=== PATIENT | female | born 1945 | race Caucasian/White ===

== ENCOUNTER 2016-11-11 23:45 | Emergency (ER) | payer OTHER ==
[~2016-11-11 23:45] MED LIST: AMIT25 PO; ASAB PO; AT25 PO; CALTRA600D PO; COLAGEN PO; DEMA20 PO; DURA75 TOP; ERY-TAB250 MG PO; GLUCOPHXR PO; GLUCPH PO; INDE80 PO; L20 PO; L40 PO; LEVOTHYROXIN100 MCG PO; LEVOTHYROXIN112 MCG PO; LEVOTHYROXIN125 MCG PO; LEVOTHYROXIN137 MCG PO; LOP25 PO; METHOC500B PO; MIRAPEX250 PO; NORCO1 TA1 PO; NORCO1 TA2 PO; PCET PO; PERCOCET1 TA4 PO; POT GLUCONAT550 M1 OR; PROTONIX PO; RELISTOR12 MG/0.6 SC; SALAGEN5 MG PO; SINGULAIR1 PO; SPIRO25 PO; SPIRO50 PO; SUCR PO; SURBEX/C1 TAB PO; TOPAMAX100 PO; VESICARE10 MG PO; VITAMIN D31000 UNIT PO; X25 PO; ZANTAC150 MG PO; ZESTORETIC1 TAB PO; ZOFRAN8 PO; [UNRECOGNIZED DRUG - OTHER] PO
[2016-11-12 01:34] LABS: BASOPHILS 0.1 %; BASOPHILS ABSOLUTE 0.01 10/3/uL (0.0-0.16); EOSINOPHILS 0.9 %; EOSINOPHILS ABSOLUTE 0.06 10/3/uL (0.0-0.53); ER CBC TAT 0 Hrs 05 MinsNP; HEMATOCRIT 40.1 % (36.0-48.0); HEMOGLOBIN 13.2 g/dL (12.0-16.0); IMMATURE GRANULOCYTES 0.1 %; IMMATURE GRANULOCYTES ABSOLUTE 0.01 10/3/uL (0.0-0.11); LYMPHOCYTES 27.5 %; LYMPHOCYTES ABSOLUTE 1.88 10/3/uL (0.67-4.30); MANUAL DIFF NO %; MEAN CORPUS HGB CONC 32.9 g/dL (32.0-36.0); MEAN CORPUSCULAR HEMOGLOB 31.9 pg (26.0-34.0); MEAN CORPUSCULAR VOLUME 96.9 fL (80-100); MEAN PLATELET VOLUME 9.5 fL (9.2-13.0); MONOCYTES 8.1 %; MONOCYTES ABSOLUTE 0.55 10/3/uL (0.21-1.20); NEUTROPHILS 63.3 %; NEUTROPHILS ABSOLUTE 4.32 10/3/uL (2.02-8.40); PLATELET COUNT 185 10/3/uL (150-400); RED CELL COUNT 4.14 10/6/uL (4.0-5.6); WHITE BLOOD CELLS 6.8 10/3/uL (4.5-10.5)
[2016-11-12 01:47] LABS: A/G RATIO 1.1 (0.7-1.9); ALBUMIN 3.8 G/DL (3.5-5.0); ALKALINE PHOSPHATASE 59 U/L (45-117); BUN (BLOOD UREA NITROGEN) 14 MG/DL (6-23); CALCIUM, SERUM 9.3 MG/DL (8.5-10.4); CHLORIDE, SERUM 102 MMOL/L (96-112); CO2 (CARBON DIOXIDE) 29 MMOL/L (24-34); GLOBULIN 3.5 G/DL (2.5-4.1); POTASSIUM, SERUM 4.4 MMOL/L (3.5-5.3); SGOT(AST) 9 U/L (5-40); SGPT(ALT) 29 U/L (5-65); SODIUM, SERUM 139 MMOL/L (135-148); TOTAL BILIRUBIN 0.3 MG/DL (0-1.2); TOTAL PROTEIN 7.3 G/DL (6.0-8.5)
[2016-11-12 01:48] LABS: ASCORBIC ACID (UR NOT ORDER) NEG (NEG); BILIRUBIN, URINE NEGATIVE (NEG); ER URINALYSIS TAT 0 Hrs 00 Mins; KETONE, URINE NEGATIVE (NEG); LEUKOCYTE ESTERASE(NOT OR LARGE (NEG); NITRITE (URINE) POS (NEG); WBC (NOT ORDERED) (RFLEX) > 182 (0-5)
[2016-11-12 01:48] LABS: CREATININE 1.26 MG/DL (0.55-1.02); GFR AFRICAN AMERICAN 50 ML/MIN (>=60); GFR NON AFRICAN AMERICAN 43 ML/MIN (>=60); GLUCOSE, SERUM 145 MG/DL (60-99)
[2016-12-02] MEDS ORDERED: BUSPAR5 PO (15:25)
[2017-02-03] MEDS ORDERED: D 5000 PO (20:51)
[2017-02-03] MEDS ORDERED: SYN1 PO (20:51)
[2017-02-03] MEDS ORDERED: GLUCPH PO (20:52)
[2017-02-03] MEDS ORDERED: LOP25 PO (20:52)
[2017-02-03] MEDS ORDERED: MYRBETRIQ50 MG PO (20:52)
[2017-02-03] MEDS ORDERED: DEMA20 PO (20:53)
[2017-02-03] MEDS ORDERED: ZOFRAN8 PO (20:53)
[2017-02-03] MEDS ORDERED: OSPHENA60 MG PO (20:54)
[2017-02-03] MEDS ORDERED: MIRAPEX5 PO (20:54)
[2017-02-03] MEDS ORDERED: VITAMIN B PO (20:54)
[2017-02-03] MEDS ORDERED: PROTONIX PO (20:54)
[2017-02-03] MEDS ORDERED: PERCOCET 10/3251 TAB PO (20:54)
[2017-02-03] MEDS ORDERED: LEG CRAMPS PO (20:55)
[2017-02-03] MEDS ORDERED: LEVSINTAB PO (20:55)
[2017-02-03] MEDS ORDERED: SPIR100 PO (20:55)
[2017-02-03] MEDS ORDERED: TEARS PURE OPH (20:56)
[2017-02-03] MEDS ORDERED: CEFT2 PO (20:56)
[2017-03-26] MEDS ORDERED: ENDOCET1 TA3 PO ×2 (23:51→23:56)
[2017-03-26] MEDS ORDERED: COUMADIN3 MG PO (23:51)
[2017-03-26] MEDS ORDERED: GLUCPH PO (23:52)
[2017-03-26] MEDS ORDERED: DEMA20 PO ×2 (23:52→23:57)
[2017-03-26] MEDS ORDERED: CORDARONE PO (23:53)
[2017-03-26] MEDS ORDERED: REFRESH OPH (23:54)
[2017-03-26] MEDS ORDERED: SYN1 PO (23:54)
[2017-03-26] MEDS ORDERED: LIPITOR40 PO (23:54)
[2017-03-26] MEDS ORDERED: LOP25 PO (23:54)
[2017-03-26] MEDS ORDERED: MYRBETRIQ50 MG PO (23:55)
[2017-03-26] MEDS ORDERED: ZOFRAN8 PO (23:55)
[2017-03-26] MEDS ORDERED: MIRAPEX5 PO (23:56)
[2017-03-26] MEDS ORDERED: PROTONIX PO (23:56)
[2017-03-26] MEDS ORDERED: SPIR100 PO (23:57)
[2017-03-26] MEDS ORDERED: PSEUDOEPHEDR60 MG PO (23:58)
[2017-03-26] MEDS ORDERED: NEO-OINT15 TOP (23:59)
== END 2016-11-12 04:54 | disposition home or self-care (01) ==
LOC: ER 23:45
PROVIDERS: Hospitalist
DX: K20.9 Esophagitis, unspecified (principal); N39.0 Urinary tract infection, site not specified; K21.9 Gastro-esophageal reflux disease without esophagitis; Z88.8 Allergy status to other drugs, medicaments and biological substances; Z79.899 Other long term (current) drug therapy
CPT/HCPCS: 74176; 80053; 81001; 83690; 85025; 87077; 87086; 87186; 96374; 96375; 99284; A9270-GY; J2405

== ENCOUNTER 2017-02-03 20:57 | Inpatient (IN) | payer OTHER ==
--- NOTE | ~2017-02-03 | CN ---
Consultation Report [facility] [address] [facility] [place]. [address] NAME: KACI BONDS : 49 STATUS : ADM IN [facility]#: [id number] AGE: 71 ADM/REG DATE : 02/03/17 MR#: [id number] REPORT SERV DATE: 02/06/17 DICTATED BY: DATE: REPORT STATUS : Draft TRANSCRIBED BY: MODL DATE: 02/06/17 CARDIOLOGY CONSULTATION DATE OF CONSULTATION: 02/06/2017 CHIEF COMPLAINT/REASON FOR CONSULTATION: Postoperative atrial fibrillation. HISTORY OF PRESENT ILLNESS: Mrs. Kaci Bonds is a very pleasant 71-year-old female, who presented on 02/03/2017 to the emergency department with chest pain. Initially, a type A dissection was suspected via CT examination. Sternotomy performed. It was found that the ascending aorta was normal after the aorta and the root were explored, and she was recovering from her surgery when she was found to have a short episode of paroxysmal atrial fibrillation. She was asymptomatic during the episode and subsequently converted to normal sinus rhythm by 0716 hours this morning. PAST MEDICAL HISTORY: 1. Hypertension. 2. Diabetes mellitus. 3. Spondylolisthesis. 4. Bronchitis. 5. Fibromyalgia. 6. Chronic back pain, status post nerve stimulator. SOCIAL HISTORY: The patient is . She has several children and grandchildren. She does not smoke, drink, or use extracurricular drugs. FAMILY HISTORY: Significant for cerebrovascular disease, but otherwise negative. REVIEW OF SYSTEMS: Performed and is negative, except for dictated in HPI. PHYSICAL EXAMINATION: VITAL SIGNS: The patient is afebrile, pulse between 93 and 133 beats per minute today, blood pressure 109 to 141 over 56 to 60, respirations 16, oxygen saturations 96% on 2 L nasal cannula. GENERAL: Mrs. Bonds is drowsy appearing, but in no distress. NECK: No jugular venous distention. No carotid bruits. HEART: Regular rate and rhythm. Soft S1 and S2. I could not appreciate murmurs, rubs, or gallops. LUNGS: Clear to auscultation in all hoang. ABDOMEN: Obese. Mildly tender to palpation. I could not appreciate any renal bruits. Bowel sounds are mildly hypoactive. EXTREMITIES: Warm and well perfused. There is +1 pitting edema bilaterally. NEUROLOGIC: The patient is drowsy, but she answers questions appropriately and follows Consultation Report [facility] [address] [address] NAME: KACI BONDS : [birth year] STATUS : ADM IN [facility]#: [id number] AGE: 71 ADM/REG DATE : 02/03/17 MR#: [id number] REPORT SERV DATE: 02/06/17 DICTATED BY: DATE: REPORT STATUS : Draft TRANSCRIBED BY: MODL DATE: 02/06/17 commands appropriately. I could not appreciate focal neurologic deficit. MUSCULOSKELETAL: No clubbing or cyanosis of the digits. DATA: Hemoglobin 9.2, hematocrit 28, platelet count is 156. Sodium 138, potassium 4.6, BUN 22, creatinine 0.59, glucose is 166. TSH is mildly decreased at 0.128, free T4 mildly elevated at 1.47. An EKG performed shortly after an episode of atrial fibrillation documented a normal sinus rhythm at 97 beats per minute. PVC was noted. There is poor R- wave progression. IMPRESSION REPORT AND PLAN: 1. Postoperative atrial fibrillation, now resolved. CHADS-VASc score 4. 2. Hypertension. 3. Diabetes mellitus. 4. Anemia. 5. Mild volume overload. RECOMMENDATIONS: 1. I discussed the risks and benefits of anticoagulation with the patient and her at the bedside and would recommend anticoagulation to reduce her stroke risk. In light of her postoperative state, I would recommend using warfarin for goal INR of 2 to 3. 2. She will continue her metoprolol tartrate unchanged at this time. 3. We will perform amiodarone loading and likely wean off amiodarone in the near future. 4. Continue normal postoperative care. It has been my pleasure to participate in the care of this patient. CANDICE/WHITNEY Ashley Rivas M.D. / [id number] CC: MD Criss Crowley M.D.
--- NOTE | ~2017-02-03 | DS ---
Discharge Summary [facility] [address] [place]. [address] NAME: KACI SERRANO : 49 STATUS : DIS IN PAT#: [id number] AGE: 71 ADM/REG DATE : 02/03/17 MR#: [id number] REPORT SERV DATE: 02/17/17 DICTATED BY: MARITZA FELIPE DATE: 02/16/17 REPORT STATUS : Draft TRANSCRIBED BY: WHITNEY DATE: 02/16/17 Data Collection from hospitalization DISCHARGE DIAGNOSIS(ES): 1. Status post aortic exploration. 2. Paroxysmal atrial fibrillation. 3. Hypertension. 4. Diabetes mellitus. CONSULTATIONS: Dr. Ashley Rivas. PROCEDURES PERFORMED: 1. Median sternotomy; innominate artery cannulation; extracorporeal circulation; ascending aortic exploration; transesophageal echo; endoscopic vein harvest of the right thigh; Prevena dressing placement, 02/04/2017. 2. Venous ultrasound of the upper extremity on the left side, 02/10/2017. 3. Echocardiogram, 02/07/2017. MEDICATIONS: Aspirin 81 mg daily, Lipitor 40 mg at bedtime, vitamin D 5000 units twice daily, Synthroid 100 mcg before breakfast, Lopressor 25 mg twice daily, Myrbetriq 50 mg daily, Mirapex 0.5 mg at bedtime, Zofran 8 mg every 8 hours as needed, Percocet 10/325 one four times daily, Protonix 40 mg twice daily, vitamin D one daily, Aldactone 100 mg with breakfast and supper, [id number] medication two tablets daily for leg cramps, Levsin 0.125 mg twice daily as needed, and artificial tears one drop each eye twice daily as needed. CONDITION AT DISCHARGE: Upon discharge, she did appear to be doing well and had no complaints. DISPOSITION: She was discharged home to continue a 1500 calorie ADA cardiac diet with activity as discussed. She was to follow up with myself on 03/04/2017. Follow up with Dr. Criss Nicholson on 02/18/2017. Follow up with Dr. Ashley Rivas on 03/10/2017. Follow up for an INR check at [facility] on 02/12/2017. HOSPITAL COURSE: This 71-year-old female had presented to the emergency room at [facility] with complaints of chest pain and shortness of breath. Her cardiac workup included EKG and cardiac enzymes which were normal. Labs were unremarkable and vital signs were stable. 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 I was notified of the patient's dissection and the patient was transferred to [facility] to undergo emergent surgery and further evaluation. Upon admission to the hospital, she had been placed on preop cardiac surgery orders. Following the day of admission, she had been taken to the operating room where she did undergo the above procedure. She tolerated this well and was transferred to the recovery room. On postop day #1, she had no new issues noted. She did state that she was feeling a little better. She did have the anticipated sternal pain noted. Her vital signs were stable. She was however noted to have a temperature at 100.8, and her vital signs were stable. Her blood pressure was noted to have been improved. Discharge Summary [place] [id number] [facility] [place]. [address] NAME: KACI SERRANO : 49 STATUS : DIS IN PAT#: [id number] AGE: 71 ADM/REG DATE : 02/03/17 MR#: [id number] REPORT SERV DATE: 02/17/17 DICTATED BY: MARITZA FELIPE DATE: 02/16/17 REPORT STATUS : Draft TRANSCRIBED BY: WHITNEY DATE: 02/16/17 On postop day #2, she did continue to do well and was noted to have had a short episode of atrial fibrillation with RVR with a 3 second pause and then sinus rhythm thereafter. She had had abnormal rhythm all morning with ST ( ) pauses and what appeared to be atrial fibrillation or atrial flutter. She was asymptomatic to this. Her only complaint was soreness and weakness as well as some palpitations. Secondary to this, she had been evaluated by Dr. Ashley Rivas of Cardiology for postoperative atrial fibrillation. She discussed the risks and benefits of anticoagulation with the patient and her at the bedside, and she had recommended anticoagulation to reduce her stroke risk, and in light of her postoperative stay, she had recommended using warfarin for goal INR of 2-3. She was to continue her metoprolol tartrate at the current dose, and she was to undergo amiodarone loading and likely wean off amiodarone in the near future. She was to continue her normal postoperative care. On 02/07/2017, she did appear to be doing well and had no major issues noted. She had converted back to sinus rhythm, and she did appear to be much more awake and not as groggy. She was however noted to be very sensitive to touch and did have complaints of pain and reflux. She had refused milk of magnesia the previous day, however, had not had a bowel movement since before surgery. She was afebrile, and her vital signs were stable. We tried to give her milk of magnesia. However, she had thrown this up and had not been eating or drinking much and did state that she had a history of multiple esophageal dilations and her last one was three to four months ago. She did have complaints of heartburn with an inability to tolerate liquids. She did undergo the above echocardiogram. She did appear to be doing well otherwise except for her decreased appetite. She was in sinus rhythm on telemetry. On 02/08/2017, she did remain in stable condition and had no new complaints noted. She was continued on supportive care. She did remain in stable condition and had continued to do well. She was noted to have some upper extremity swelling with the left being greater than the right on 02/10/2017, and she did undergo a venous ultrasound. As she continued to do well, she was then discharged with the above instructions. Information collected by: Rafiq Peraza. I submit the above information as my discharge summary. JACE/WHITNEY Maritza Felipe MD / [id number] CC: MD Criss Crowley M.D. Lisa Gail Carkner, M.D.
--- NOTE | ~2017-02-03 | OP ---
Record Of Operation [facility] [address] [place]. [address] NAME: KACI BONDS : 49 STATUS : ADM IN [facility]#: [id number] AGE: 71 ADM/REG DATE : 02/03/17 MR#: [id number] REPORT SERV DATE: 02/04/17 DICTATED BY: MARITZA FELIPE DATE: 02/04/17 REPORT STATUS : Draft TRANSCRIBED BY: MODL DATE: 02/04/17 DATE OF PROCEDURE: 02/04/2017 SURGEON: Maritza Felipe MD CASE CONSULTANT: Christiano Felipe. ANESTHESIOLOGIST: Brian Damian M.D. PREOPERATIVE DIAGNOSES: 1. Type A aortic dissection. 2. Tachycardia. 3. Diabetes mellitus. 4. Gastroesophageal reflux disease. POSTOPERATIVE DIAGNOSES: Normal ascending aorta, tachycardia, diabetes mellitus, GERD. OPERATION AND PROCEDURE PERFORMED: 1. Median sternotomy. 2. Innominate artery cannulation. 3. Extracorporeal circulation. 4. Ascending aortic exploration. 5. Transesophageal echo. 6. Endoscopic vein harvest of the right thigh. 7. Prevena dressing placement. TUBES AND DRAINS: A 32 straight chest tube under the sternum. COMPLICATIONS: None. POSTOPERATIVE CONDITION: Stable to CVICU. DETAILS OF FINDINGS: Transesophageal echo showed trace to mild AI. No . There is a very small flap above the right coronary cusp. The ascending aorta was hard to visualize. INTRAOPERATIVE FINDINGS: Upon opening the pericardium, there was no staining of the ascending aorta. There is no blood in the pericardial. There is no evidence of what would be considered an acute type A dissection. At this point, Dr. Damian was recalled to the room and transesophageal echo was again examined and there was still felt to be a small flap above the right coronary cusp which correlated with the CT scan. After cross clamp and cardioplegia and the opening of the aorta, there was no dissection. There was no ascending aortic root dissection. There was no ascending aortic pathology. There was no real pathology. The aortic valve was trileaflet and normal in appearance. INDICATIONS FOR PROCEDURE: Ms Bonds is a 71-year-old female, who was in her usual state of health until approximately 3 this afternoon of the 02/03/2017, went to the store and was Record Of Operation [facility] [address] [place]. [address] NAME: KACI BONDS : 49 STATUS : ADM IN PAT#: [id number] AGE: 71 ADM/REG DATE : 02/03/17 MR#: [id number] REPORT SERV DATE: 02/04/17 DICTATED BY: MARITZA FELIPE DATE: 02/04/17 REPORT STATUS : Draft TRANSCRIBED BY: WHITNEY DATE: 02/04/17 found to have acute chest pain radiating to her back with shortness of breath and the symptoms were unrelenting. She received a CT scan in the emergency department at [facility], where it was felt to have an acute type A dissection. She was transferred to [facility] and was seen and evaluated in the CVICU and She again was continuing to have the back and chest pain, and shortness of breath. When I saw her, the story was fairly convincing for a type A dissection. The CT scan was reviewed and was consistent with the type A dissection. Risks, benefits, and alternatives were discussed with her and her including, but not limited to bleeding, infection, stroke, , heart attack, need for future operations. All questions were answered. The patient was taken to the operating room. DETAILS OF PROCEDURE: The patient was brought to the operating room, placed supine on the operating room table. After satisfactory induction of general endotracheal anesthesia, she was prepped and draped in the usual sterile fashion. Working simultaneously, endoscopic vein harvest was performed from the right leg, right thigh. Endoscopic vein harvest was performed because it appeared that the aortic cusp was involved and I did not know if I would need to perform a bypass if the ostia of the right coronary was involved. A median sternotomy was performed. Skin and subcutaneous tissues were divided and clavipectoral fascia was divided. The sternum was divided in the midline. A sternal retractor was placed. Thymic tissue was divided in the midline up to the innominate vein. The pericardium was opened in the midline and along the diaphragm and innominate vein was dissected out circumferentially and removed away from the innominate artery. The innominate artery was then dissected circumferentially off where it arises from the arch of the aorta in order to place the bypass cannula. The Satinsky clamp was brought up, and after just a systemic heparinization, the Satinsky clamp was placed around the innominate artery and innominate artery was opened for approximately a centimeter and an 8 mm Gelweave graft was sewn to the innominate artery in an end-to-side fashion using 6-0 Prolene. The graft was de aired. It was felt to be hemostatic and was hooked to the arterial side of the bypass cannula. Now the dual stage venous cannula was placed through a pursestring in the right atrial appendages and hooked to the venous side. Cardiopulmonary bypass was initiated after documentation of an adequate ACT and antegrade root vent cardioplegia tack was placed in the midportion of the ascending aorta. After discussing again with Dr. Damian the transesophageal echo, heart was then arrested with cold antegrade cardioplegia for a total of 1500 mL of prison and an aortotomy was performed. The ascending aorta was completely normal. There was no dissection flap. There was no evidence of any dissection. There was no proximal dissection that could be visualized. There was no reentry point that could be visualized. The ascending aorta en route were completely normal. After thorough examination, the aorta was then closed. The aorta was closed using 4-0 Prolene in a double layered fashion. The root was de-aired and the cross-clamp was removed. The patient returned to normal sinus rhythm and was rewarmed to 37 degrees. She was able to be weaned from cardiopulmonary bypass without incident. Protamine was administered. She was decannulated. All cannulation sites were oversewn with 4-0 Prolene. The innominate artery cannula was stable and felt to be hemostatic. The pericardium was able to be brought through in the couple of places to cover the ascending aorta and the right ventricle. A 32- Slovak chest tube was placed beneath the sternum. The sternum was reapproximated with stainless steel sternal wires. Some of these were double wires. Clavipectoral fascia was reapproximated using running #1 Stratafix. Subcutaneous tissues were closed using running Record Of Operation [place] [id number] [facility] [place]. [address] NAME: KACI BONDS : 49 STATUS : ADM IN PAT#: [id number] AGE: 71 ADM/REG DATE : 02/03/17 MR#: [id number] REPORT SERV DATE: 02/04/17 DICTATED BY: MARITZA FELIPE DATE: 02/04/17 REPORT STATUS : Draft TRANSCRIBED BY: WHITNEY DATE: 02/04/17 #1 Stratafix and the skin was closed with 2-0 Quill. Dry sterile dressings were placed and she was transferred to CVICU in critical, stable condition. Brad/WHITNEY Maritza Felipe MD / [id number] CC: Maritza Felipe MD
--- NOTE | ~2017-02-03 | HP ---
History And Physical [place] [address] [facility] [place]. [address] NAME: KACI SERRANO : 49 STATUS : ADM IN PAT#: [id number] AGE: 71 ADM/REG DATE : 02/03/17 MR#: [id number] REPORT SERV DATE: 02/04/17 DICTATED BY: STEFANI ALEJANDRO DATE: 02/04/17 REPORT STATUS : Draft TRANSCRIBED BY: MODAlanna DATE: 02/04/17 DATE OF ADMISSION: 02/03/2017 REASON FOR ADMISSION: Type A dissection. HISTORY OF PRESENT ILLNESS: This is a 71-year-old female, who presented to the emergency room yesterday afternoon at [facility] with complaints of chest pain and shortness of breath. Her cardiac workup included EKG and cardiac enzymes, which were normal. Labs were unremarkable and vital signs were stable. 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 Dr. Headley was notified of the patient's dissection and the patient was transferred to [facility] to undergo emergent surgery. The patient was taken to the operating room last night, and after a sternotomy, she was not found to have any evidence of dissection. Surgery turned into aortic exploration after cross-clamp with no ascending aortic or root dissection. There was [id number] aortic insufficiency with no aortic stenosis. This morning, she is recovering. She is extubated and has anticipated sternal discomfort, but otherwise, no complaints. She is calm and vital signs are stable other than her blood pressure, which is a little low. She is on low-dose Levophed. Other than her sternal discomfort, she has no complaints at this time. PAST MEDICAL HISTORY: Type 2 diabetes mellitus, tachycardia, lymphedema, bladder repair, hiatal hernia, GERD, gastroparesis, osteoarthritis, and anxiety. PAST SURGICAL HISTORY: Prior nerve stimulator, multiple esophageal dilations, hysterectomy, cholecystectomy, and prior back surgery. FAMILY HISTORY: Reviewed and noncontributory. ALLERGIES: DILANTIN, REGLAN, NSAIDS, MORPHINE, TEGRETOL, CLONAZEPAM, AND PHENERGAN. HOME MEDICATIONS: Artificial tear one drop ophthalmically twice a day as needed, vitamin B complex one tab p.o. daily, vitamin D 5000 units p.o. twice a day, Levsin 0.125 mg p.o. twice a day as needed for esophageal spasm, Synthroid 125 mcg p.o. daily, metformin 500 mg p.o. with breakfast and supper, Lopressor 12.5 mg p.o. twice a day, Myrbetriq 50 mg p.o. daily, Zofran 8 mg p.o. q.8 hours as needed, Osphena 60 mg p.o. daily, Percocet 10/325 one tab four times a day as needed, Protonix 40 mg p.o. twice a day, Mirapex 0.5 mg p.o. at bedtime, Aldactone 100 mg p.o. with breakfast and supper, torsemide one tab p.o. daily, unknown medication for leg cramps and unspecified antibiotic, which she started on 01/31/2017. REVIEW OF SYSTEMS: A 10-point review of systems was obtained and is negative other than HPI. PHYSICAL EXAMINATION: History And Physical [address] [address] NAME: KACI SERRANO : 49 STATUS : ADM IN [facility]#: [id number] AGE: 71 ADM/REG DATE : 02/03/17 MR#: [id number] REPORT SERV DATE: 02/04/17 DICTATED BY: STEFANI ALEJANDRO DATE: 02/04/17 REPORT STATUS : Draft TRANSCRIBED BY: WHITNEY DATE: 02/04/17 VITAL SIGNS: From today, temperature 100.6, heart rate 90, blood pressure 99/55, respiratory rate 16, and O2 saturation 100% on 3 L. GENERAL: Pleasant, calm female, in no acute distress. NEURO: Alert and orient x2, lethargic but calm, arousable, generalized weakness of upper extremities and lower extremities. HEENT: Head is normocephalic and atraumatic. Sclerae are clear. Nose midline with no abnormalities. Teeth with poor dentition and several missing teeth. Ears with no abnormality. NECK: Supple with no thyromegaly or lymphadenopathy. LUNGS: Clear to auscultation bilaterally with diminished bases. CARDIAC: S1, S2. No murmurs, rubs, or gallops. Carotids on auscultation with no obvious bruits. She is status post sternotomy with Prevena dressing placed. ABDOMEN: Soft, nontender, with active bowel sounds. EXTREMITIES: Trace bilateral lower extremity edema. She has wrapping on her right lower extremity from her LVH incision yesterday. Pedal pulses are present and equal bilaterally. LABORATORY DATA: White blood cell count 9.7, hemoglobin 10.5, hematocrit 32.1, platelets 189. Sodium 141, potassium 4.2, chloride 108, bicarbonate 24, BUN 16, creatinine 0.7, and glucose 153. IMAGING: CT angiogram of chest performed on 02/03/[address] evidence of pulmonary emboli. 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 This does not involve the origins of the great vessels. No associated significant aneurysmal change and no active pulmonary disease. Chest x-ray on 02/03/2017 showed no acute cardiopulmonary abnormality. CT of abdomen and pelvis performed on 02/03/2017 showed no acute GI or obstruction. Evidence of significant amount of prior back surgeries, hysterectomy, cholecystectomy. There is a small 2 mm nodule identified in the right lung base and followup CT scans are recommended. Liver and spleen were normal. Adrenal glands and kidneys are unremarkable. The pancreas, body, head, and tail were unremarkable. ASSESSMENT AND PLAN: This is a 71-year-old female with a past medical history as described above, who was transferred emergently to [facility] for suspected type A dissection after sternotomy was performed. There was no dissection noted and surgery was turned into an exploration of the aorta with no significant abnormalities that would warrant any type of surgical correction. The patient was closed back up and brought to CVICU for recovery where she is in guarded but stable condition. She still has a mediastinal drain, which has put out 55 mL overnight. We will leave this until this afternoon and likely discontinue later today. I would like to watch her in the ICU this morning and get her off Levophed. Her vital signs and labs are within normal limits. NSW/MODL Stefani Malcolm History And Physical [facility] [address] [address] NAME: KACI SERRANO : 49 STATUS : ADM IN PAT#: [id number] AGE: 71 ADM/REG DATE : 02/03/17 MR#: [id number] REPORT SERV DATE: 02/04/17 DICTATED BY: STEFANI ALEJANDRO DATE: 02/04/17 REPORT STATUS : Draft TRANSCRIBED BY: MODL DATE: 02/04/17 EDWIN Alejandro / [id number] CC: Darryn Headley MD UNKNOWN
[~2017-02-03 20:57] MED LIST changes: +BUSPAR5 PO; +CEFT2 PO; +D 5000 PO; +LEG CRAMPS PO; +LEVSINTAB PO; +MIRAPEX5 PO; +MYRBETRIQ50 MG PO; +OSPHENA60 MG PO; +PERCOCET 10/3251 TAB PO; +SPIR100 PO; +SYN1 PO; +TEARS PURE OPH; +VITAMIN B PO
[2017-02-03 22:28] LABS: BASOPHILS 0.3 %; BASOPHILS ABSOLUTE 0.02 10/3/uL (0.0-0.16); EOSINOPHILS 1.2 %; EOSINOPHILS ABSOLUTE 0.09 10/3/uL (0.0-0.53); HEMATOCRIT 38.2 % (36.0-48.0); HEMOGLOBIN 12.5 g/dL (12.0-16.0); IMMATURE GRANULOCYTES 0.3 %; IMMATURE GRANULOCYTES ABSOLUTE 0.02 10/3/uL (0.0-0.11); LYMPHOCYTES 37.2 %; LYMPHOCYTES ABSOLUTE 2.71 10/3/uL (0.67-4.30); MANUAL DIFF NO %; MEAN CORPUS HGB CONC 32.7 g/dL (32.0-36.0); MEAN CORPUSCULAR HEMOGLOB 30.7 pg (26.0-34.0); MEAN CORPUSCULAR VOLUME 93.9 fL (80-100); MEAN PLATELET VOLUME 9.8 fL (9.2-13.0); MONOCYTES ABSOLUTE 0.58 10/3/uL (0.21-1.20); NEUTROPHILS ABSOLUTE 3.86 10/3/uL (2.02-8.40); PLATELET COUNT 267 10/3/uL (150-400); RBC DISTRIBUTION WIDTH 12.2 % (12.0-16.0); RED CELL COUNT 4.07 10/6/uL (4.0-5.6); WHITE BLOOD CELLS 7.3 10/3/uL (4.5-10.5)
[2017-02-03 22:37] LABS: PARTIAL THROMBO TIME 27.4 SEC (22.5-37.2); PROTIME (NOT ORD) 13.5 SEC (12.0-14.5)
[2017-02-03 22:42] LABS: FIBRINOGEN 402 MG/DL (230-462)
[2017-02-03 22:43] LABS: A/G RATIO 1.1 (0.7-1.9); ALBUMIN 3.5 G/DL (3.5-5.0); ALKALINE PHOSPHATASE 53 U/L (45-117); BUN (BLOOD UREA NITROGEN) 12 MG/DL (6-23); CALCIUM, SERUM 8.8 MG/DL (8.5-10.4); CHLORIDE, SERUM 107 MMOL/L (96-112); CO2 (CARBON DIOXIDE) 26 MMOL/L (24-34); CREATININE 0.88 MG/DL (0.55-1.02); GFR AFRICAN AMERICAN 78 ML/MIN (>=60); GFR NON AFRICAN AMERICAN 67 ML/MIN (>=60); GLOBULIN 3.2 G/DL (2.5-4.1); GLUCOSE, SERUM 130 MG/DL (60-99); PHOSPHORUS, SERUM 3.9 MG/DL (2.5-4.5); SGPT(ALT) 23 U/L (5-65); SODIUM, SERUM 142 MMOL/L (135-148); TOTAL BILIRUBIN 0.4 MG/DL (0-1.2); TOTAL PROTEIN 6.7 G/DL (6.0-8.5)
[2017-02-03 22:53] LABS: POTASSIUM, SERUM 4.4 MMOL/L (3.5-5.3)
[2017-02-03 22:54] LABS: SGOT(AST) 32 U/L (5-40)
[2017-02-04 02:18] LABS: BE (BASE EXCESS) -1.9 MEQ/L (0 +/- 2.5); CARBOXYHEMOGLOBIN 0.3 % (0-3); HCO3 (ACTUAL BICARBONATE) 23.1 MEQ/L (23-27); INSTRUMENT SERIAL # 11843; METHEMOGLOBIN 0.5 % (0-3); MODE SIMV; O2 CONTENT 16.1 VOL% (18-24); PCO2 (CO2 TENSION) 40 MMHG (35-45); PO2 (O2 TENSION) 331 MMHG (79-93); SAMPLE Arterial; TIDAL VOLUME 500 ML; pH 7.38 (7.37-7.43)
[2017-02-04 03:32] LABS: BASOPHILS 0.1 %; BASOPHILS ABSOLUTE 0.01 10/3/uL (0.0-0.16); EOSINOPHILS 0.2 %; EOSINOPHILS ABSOLUTE 0.02 10/3/uL (0.0-0.53); HEMOGLOBIN 10.5 g/dL (12.0-16.0); IMMATURE GRANULOCYTES 1.1 %; IMMATURE GRANULOCYTES ABSOLUTE 0.11 10/3/uL (0.0-0.11); LYMPHOCYTES 18.9 %; LYMPHOCYTES ABSOLUTE 1.84 10/3/uL (0.67-4.30); MEAN CORPUS HGB CONC 32.7 g/dL (32.0-36.0); MEAN CORPUSCULAR HEMOGLOB 31.1 pg (26.0-34.0); MEAN PLATELET VOLUME 10.2 fL (9.2-13.0); MONOCYTES 1.6 %; MONOCYTES ABSOLUTE 0.16 10/3/uL (0.21-1.20); NEUTROPHILS 78.1 %; NEUTROPHILS ABSOLUTE 7.59 10/3/uL (2.02-8.40); PLATELET COUNT 189 10/3/uL (150-400); RBC DISTRIBUTION WIDTH 12.2 % (12.0-16.0); RED CELL COUNT 3.38 10/6/uL (4.0-5.6); WHITE BLOOD CELLS 9.7 10/3/uL (4.5-10.5)
[2017-02-04 03:39] LABS: HEMATOCRIT 32.1 % (36.0-48.0); MANUAL DIFF NO %
[2017-02-04 03:40] LABS: INTERNATIONAL NORMAL RATI 1.5 UNITS (-); PARTIAL THROMBO TIME 29.9 SEC (22.5-37.2)
[2017-02-04 03:41] LABS: PROTIME (NOT ORD) 17.7 SEC (12.0-14.5)
[2017-02-04 03:48] LABS: BUN (BLOOD UREA NITROGEN) 10 MG/DL (6-23); CALCIUM, SERUM 8.2 MG/DL (8.5-10.4); CHLORIDE, SERUM 108 MMOL/L (96-112); CO2 (CARBON DIOXIDE) 24 MMOL/L (24-34); CREATININE 0.71 MG/DL (0.55-1.02); GFR AFRICAN AMERICAN 101 ML/MIN (>=60); GFR NON AFRICAN AMERICAN 87 ML/MIN (>=60); GLUCOSE, SERUM 153 MG/DL (60-99); POTASSIUM, SERUM 4.2 MMOL/L (3.5-5.3); SODIUM, SERUM 141 MMOL/L (135-148)
[2017-02-04 03:53] LABS: FIBRINOGEN 295 MG/DL (230-462)
[2017-02-04 06:32] LABS: BE (BASE EXCESS) -6.4 MEQ/L (0 +/- 2.5); CARBOXYHEMOGLOBIN 0.3 % (0-3); DEVICE NC; HCO3 (ACTUAL BICARBONATE) 18.5 MEQ/L (23-27); HEMOBLOGIN CONTENT 11.4 G/DL (12-16); INSTRUMENT SERIAL # 8083; METHEMOGLOBIN 0.1 % (0-3); O2 CONTENT 16.1 VOL% (18-24); PCO2 (CO2 TENSION) 35 MMHG (35-45); PO2 (O2 TENSION) 172 MMHG (79-93); SAMPLE Arterial; pH 7.35 (7.37-7.43)
[2017-02-04 12:57] LABS: ULTRASENSITIVE TSH 0.128 MCIU/ML (0.358-3.740)
[2017-02-04 22:37] LABS: HEMATOCRIT 32.2 % (36.0-48.0); HEMOGLOBIN 10.5 g/dL (12.0-16.0)
[2017-02-04 22:46] LABS: POTASSIUM, SERUM 4.8 MMOL/L (3.5-5.3)
[2017-02-05 03:33] LABS: BASOPHILS 0.1 %; BASOPHILS ABSOLUTE 0.01 10/3/uL (0.0-0.16); EOSINOPHILS 0 %; HEMATOCRIT 33.6 % (36.0-48.0); HEMOGLOBIN 10.9 g/dL (12.0-16.0); IMMATURE GRANULOCYTES 0.2 %; IMMATURE GRANULOCYTES ABSOLUTE 0.02 10/3/uL (0.0-0.11); MEAN CORPUS HGB CONC 32.4 g/dL (32.0-36.0); MEAN CORPUSCULAR HEMOGLOB 31.1 pg (26.0-34.0); MEAN CORPUSCULAR VOLUME 95.7 fL (80-100); MEAN PLATELET VOLUME 9.8 fL (9.2-13.0); MONOCYTES 9.4 %; MONOCYTES ABSOLUTE 0.87 10/3/uL (0.21-1.20); NEUTROPHILS 76.3 %; NEUTROPHILS ABSOLUTE 7.09 10/3/uL (2.02-8.40); PLATELET COUNT 189 10/3/uL (150-400); RBC DISTRIBUTION WIDTH 12.8 % (12.0-16.0); RED CELL COUNT 3.51 10/6/uL (4.0-5.6); WHITE BLOOD CELLS 9.3 10/3/uL (4.5-10.5)
[2017-02-05 03:35] LABS: MANUAL DIFF NO %
[2017-02-05 03:46] LABS: CHLORIDE, SERUM 109 MMOL/L (96-112); CO2 (CARBON DIOXIDE) 24 MMOL/L (24-34); CREATININE 0.86 MG/DL (0.55-1.02); GFR AFRICAN AMERICAN 80 ML/MIN (>=60); GFR NON AFRICAN AMERICAN 69 ML/MIN (>=60); POTASSIUM, SERUM 4.7 MMOL/L (3.5-5.3); SODIUM, SERUM 141 MMOL/L (135-148)
[2017-02-05 03:48] LABS: BUN (BLOOD UREA NITROGEN) 20 MG/DL (6-23); GLUCOSE, SERUM 116 MG/DL (60-99)
[2017-02-06 06:47] LABS: BASOPHILS 0.3 %; BASOPHILS ABSOLUTE 0.02 10/3/uL (0.0-0.16); EOSINOPHILS 0.4 %; EOSINOPHILS ABSOLUTE 0.03 10/3/uL (0.0-0.53); HEMOGLOBIN 9.2 g/dL (12.0-16.0); IMMATURE GRANULOCYTES 0.3 %; IMMATURE GRANULOCYTES ABSOLUTE 0.02 10/3/uL (0.0-0.11); LYMPHOCYTES 17.5 %; LYMPHOCYTES ABSOLUTE 1.36 10/3/uL (0.67-4.30); MEAN CORPUS HGB CONC 32.9 g/dL (32.0-36.0); MEAN CORPUSCULAR HEMOGLOB 31.1 pg (26.0-34.0); MEAN CORPUSCULAR VOLUME 94.6 fL (80-100); MEAN PLATELET VOLUME 9.8 fL (9.2-13.0); MONOCYTES 11.2 %; MONOCYTES ABSOLUTE 0.87 10/3/uL (0.21-1.20); NEUTROPHILS 70.3 %; NEUTROPHILS ABSOLUTE 5.46 10/3/uL (2.02-8.40); PLATELET COUNT 156 10/3/uL (150-400); RBC DISTRIBUTION WIDTH 12.6 % (12.0-16.0); RED CELL COUNT 2.96 10/6/uL (4.0-5.6); WHITE BLOOD CELLS 7.8 10/3/uL (4.5-10.5)
[2017-02-06 06:48] LABS: MANUAL DIFF NO %
[2017-02-06 07:00] LABS: BUN (BLOOD UREA NITROGEN) 22 MG/DL (6-23); CALCIUM, SERUM 8.8 MG/DL (8.5-10.4); CHLORIDE, SERUM 105 MMOL/L (96-112); CO2 (CARBON DIOXIDE) 27 MMOL/L (24-34); CREATININE 0.59 MG/DL (0.55-1.02); GFR AFRICAN AMERICAN 108 ML/MIN (>=60); GFR NON AFRICAN AMERICAN 94 ML/MIN (>=60); POTASSIUM, SERUM 4.6 MMOL/L (3.5-5.3); SODIUM, SERUM 138 MMOL/L (135-148)
[2017-02-06 07:02] LABS: GLUCOSE, SERUM 166 MG/DL (60-99)
[2017-02-06 13:38] LABS: FREE T4 1.47 NG/DL (0.76-1.46)
[2017-02-06 19:23] LABS: INTERNATIONAL NORMAL RATI 1.2 UNITS (-); PROTIME (NOT ORD) 15.1 SEC (12.0-14.5)
[2017-02-07 06:45] LABS: INTERNATIONAL NORMAL RATI 1.2 UNITS (-); PROTIME (NOT ORD) 15.3 SEC (12.0-14.5)
[2017-02-07 06:51] LABS: BUN (BLOOD UREA NITROGEN) 21 MG/DL (6-23); CHLORIDE, SERUM 105 MMOL/L (96-112); CO2 (CARBON DIOXIDE) 27 MMOL/L (24-34); CREATININE 0.66 MG/DL (0.55-1.02); GFR AFRICAN AMERICAN 104 ML/MIN (>=60); GFR NON AFRICAN AMERICAN 90 ML/MIN (>=60); GLUCOSE, SERUM 140 MG/DL (60-99); POTASSIUM, SERUM 4.6 MMOL/L (3.5-5.3); SODIUM, SERUM 137 MMOL/L (135-148)
[2017-02-07 07:00] LABS: BASOPHILS 0.4 %; BASOPHILS ABSOLUTE 0.03 10/3/uL (0.0-0.16); EOSINOPHILS ABSOLUTE 0.08 10/3/uL (0.0-0.53); HEMATOCRIT 26.9 % (36.0-48.0); IMMATURE GRANULOCYTES 0.1 %; IMMATURE GRANULOCYTES ABSOLUTE 0.01 10/3/uL (0.0-0.11); LYMPHOCYTES 18.1 %; LYMPHOCYTES ABSOLUTE 1.45 10/3/uL (0.67-4.30); MEAN CORPUS HGB CONC 33.5 g/dL (32.0-36.0); MEAN CORPUSCULAR HEMOGLOB 31.4 pg (26.0-34.0); MEAN CORPUSCULAR VOLUME 93.7 fL (80-100); MONOCYTES 10.9 %; MONOCYTES ABSOLUTE 0.87 10/3/uL (0.21-1.20); NEUTROPHILS 69.5 %; NEUTROPHILS ABSOLUTE 5.55 10/3/uL (2.02-8.40); PLATELET COUNT 190 10/3/uL (150-400); RBC DISTRIBUTION WIDTH 12.5 % (12.0-16.0); RED CELL COUNT 2.87 10/6/uL (4.0-5.6)
[2017-02-07 07:03] LABS: MANUAL DIFF NO %
[2017-02-08 06:42] LABS: INTERNATIONAL NORMAL RATI 1.8 UNITS (-)
[2017-02-08 06:51] LABS: PROTIME (NOT ORD) 20.5 SEC (12.0-14.5)
[2017-02-09 06:36] LABS: INTERNATIONAL NORMAL RATI 2.1 UNITS (-)
[2017-02-09 06:37] LABS: PROTIME (NOT ORD) 23.7 SEC (12.0-14.5)
[2017-02-10 05:36] LABS: INTERNATIONAL NORMAL RATI 2.2 UNITS (-); PROTIME (NOT ORD) 24.3 SEC (12.0-14.5)
[2017-02-10] MEDS ORDERED: CORDARONE PO (14:58)
[2017-02-10] MEDS ORDERED: JANTOVEN2 MG PO (14:58)
[2017-02-10] MEDS ORDERED: LIPITOR40 PO (14:58)
[2017-02-10] MEDS ORDERED: PCET PO (14:59)
[2017-02-10] MEDS ORDERED: LOP25 PO (14:59)
[2017-02-10] MEDS ORDERED: ASAB PO (15:05)
[2017-03-26] MEDS ORDERED: ENDOCET1 TA3 PO ×2 (23:51→23:56)
[2017-03-26] MEDS ORDERED: COUMADIN3 MG PO (23:51)
[2017-03-26] MEDS ORDERED: DEMA20 PO ×2 (23:52→23:57)
[2017-03-26] MEDS ORDERED: GLUCPH PO (23:52)
[2017-03-26] MEDS ORDERED: CORDARONE PO (23:53)
[2017-03-26] MEDS ORDERED: LOP25 PO (23:54)
[2017-03-26] MEDS ORDERED: LIPITOR40 PO (23:54)
[2017-03-26] MEDS ORDERED: REFRESH OPH (23:54)
[2017-03-26] MEDS ORDERED: SYN1 PO (23:54)
[2017-03-26] MEDS ORDERED: ZOFRAN8 PO (23:55)
[2017-03-26] MEDS ORDERED: MYRBETRIQ50 MG PO (23:55)
[2017-03-26] MEDS ORDERED: PROTONIX PO (23:56)
[2017-03-26] MEDS ORDERED: MIRAPEX5 PO (23:56)
[2017-03-26] MEDS ORDERED: SPIR100 PO (23:57)
[2017-03-26] MEDS ORDERED: PSEUDOEPHEDR60 MG PO (23:58)
[2017-03-26] MEDS ORDERED: NEO-OINT15 TOP (23:59)
== END 2017-02-10 16:44 | disposition home or self-care (01) | DRG 263 ==
LOC: CVICU 20:57 → 5NO 02-05 14:43
PROVIDERS: Internal Medicine; Nurse Practitioner Family; Thoracic Surgery (Cardiothoracic Vascular Surgery)
PROC: [UNRECOGNIZED PROCEDURE] (principal; 2017-02-04)
PROC: 06BP4ZZ Excision of Right Saphenous Vein, Percutaneous Endoscopic Approach (ICD-10-PCS; 2017-02-04)
PROC: B246ZZ4 Ultrasonography of Right and Left Heart, Transesophageal (ICD-10-PCS; 2017-02-04)
PROC: 5A1221Z Performance of Cardiac Output, Continuous (ICD-10-PCS; 2017-02-04)
PROC: 0W9900Z Drainage of Right Pleural Cavity with Drainage Device, Open Approach (ICD-10-PCS; 2017-02-04)
DX: I35.1 Nonrheumatic aortic (valve) insufficiency (principal); E11.9 Type 2 diabetes mellitus without complications; K21.9 Gastro-esophageal reflux disease without esophagitis; K44.9 Diaphragmatic hernia without obstruction or gangrene; M19.90 Unspecified osteoarthritis, unspecified site; F41.9 Anxiety disorder, unspecified; Z90.710 Acquired absence of both cervix and uterus; Z98.890 Other specified postprocedural states; Z88.5 Allergy status to narcotic agent; Z90.49 Acquired absence of other specified parts of digestive tract; Z88.8 Allergy status to other drugs, medicaments and biological substances; Z79.899 Other long term (current) drug therapy; Z86.711 Personal history of pulmonary embolism; Z79.84 Long term (current) use of oral hypoglycemic drugs
CPT/HCPCS: 36415; 36600; 71010; 71020; 71275; 74176; 80048; 80053; 81001; 82330; 82803; 82805; 82947; 82962; 83036; 83690; 83735; 84100; 84132; 84295; 84439; 84443; 84481; 84484; 85014; 85018; 85025; 85347; 85384; 85610; 85730; 86850; 86900; 86901; 86920; 87641; 93005; 93312; 93320; 93325; 93971; 94002; 94640; 94660; 94770; 96374; 96375; 96376; 99285; A9270-GY; C1713; C1725; C1768; C1769; C1776; C8929; J0282; J0360; J1170; J1644; J1940; J2150; J2250; J2370; J2405; J2720; J3010; J3370; J3475; J3480; P9045; Q9957; Q9967

== ENCOUNTER 2017-02-17 12:41 | Observation (INO) | payer OTHER ==
--- NOTE | ~2017-02-17 | DS ---
Discharge Summary [id number] [place]. [address] NAME: KACI SERRANO : 49 STATUS : DIS Iggy PAT#: [id number] AGE: 71 ADM/REG DATE : 02/17/17 MR#: [id number] REPORT SERV DATE: 02/19/17 DICTATED BY: DATE: REPORT STATUS : Draft TRANSCRIBED BY: MODL DATE: 02/18/17 ADMISSION DATE: 02/17/2017 DISCHARGE DATE: 02/18/2017 DISCHARGE DIAGNOSES: 1. Shortness of breath on exertion. 2. 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 3. Supratherapeutic INR. 4. Acute blood loss anemia secondary to surgery. 5. Incisional chest pain, postop day #13, aortic exploration. 6. Hypertension. 7. Diabetes mellitus type 2. 8. Chronic pain. CONSULTATIONS: Cardiology, Dr. Babin. Cardiothoracic Surgery, Edgardo Victoria, nurse practitioner. PROCEDURES AND IMAGIN. 02/17/2017, portable chest x-ray showed mild bibasilar atelectasis with stable small bilateral pleural effusions, status post median sternotomy. 2. 02/18/2017, ventilation-perfusion scan showed normal lung scan. 3. Echocardiogram showed left ventricular ejection fraction of 58%. HOSPITAL COURSE: Please refer to Dr. Farhan Briggs's H and P dated on 02/17/2017 for complete details regarding the patient's admission. In brief, the patient was admitted by Dr. Briggs for an initial workup of acute kidney injury and dehydration. This is resolving with gentle fluid hydration and the patient has been encouraged to drink more fluids. The patient has expressed having shortness of breath on exertion and also chest pain with exertion. The patient's chest x-ray and cardiac enzymes, old as EKG have been within normal limits. Cardiology has seen the patient and cleared her. Cardiac enzymes have been less than 0.02 x3. The patient has slightly elevated BNP of 553.9. This was not thought to be significant at this time by Cardiology. Supratherapeutic INR was 3.8 upon admission. The patient was on 2 mg of Coumadin at home. The patient was off last night and dropped down to 2.8. This was extensively discussed with Pharmacy and the recommendation was to restart the patient on her 2 mg of Coumadin tonight and to followup with the Coumadin Clinic on , 02/20/2017, for possible alteration of dosage. The patient has blood loss anemia due to having surgery two weeks ago and hemoglobin and hematocrit have been remaining stable. The patient is continuing to have incisional chest pain due to sternotomy wound. The patient is on chronic Percocet 10/325 at home for her chronic hip, back, and knee pain and is also on pain management, so we will not be increasing her pain medications at this time. The patient has been complaining of more severe left shoulder pain. It has been discovered through conversation, the patient missed a steroid injection from her orthopedic doctor due to hospitalization and this has been rescheduled for within one week. The patient has history of hypertension, which has been Discharge Summary [address] [place]. [address] NAME: KACI SERRANO : 49 STATUS : DIS Iggy PAT#: [id number] AGE: 71 ADM/REG DATE : 02/17/17 MR#: [id number] REPORT SERV DATE: 02/19/17 DICTATED BY: DATE: REPORT STATUS : Draft TRANSCRIBED BY: MODL DATE: 02/18/17 stable at this time. Her diabetes mellitus also has been stable at this time. For the patient's mild hypoxemia upon ER arrival, the patient will be getting a home O2 eval with and without oxygen and with and without ambulation for possible need of home O2 for short period of time prior to discharge. The patient is also getting a physical therapy eval as it appears the patient has some limited range of motion which possibly could be chronic. PHYSICAL EXAMINATION: VITAL SIGNS: Blood pressure is 116/57, O2 saturation is 94% on 2 L, temperature is 97.6, respirations are 20, heart rate is 76. HEENT: Head is atraumatic, normocephalic. Pupils are equal, round, and reactive to light and accommodation. Sclerae are clear and anicteric. Good dentition. NECK: Neck is supple with no obvious lymphadenopathy or thyromegaly. Neck veins are flat. CARDIAC: S1 and S2 with no obvious murmurs, rubs, or gallops. CHEST: The patient has a mid-sternal healing surgical chest wound. LUNGS: Clear to auscultation with normal respiratory effort. Slight decreased in bilateral bases, right greater than left. The patient is doing shallow breathing. GI: Abdomen is soft and nontender. Active bowel sounds in all four quadrants. Normal bowel habitus. No palpable organomegaly. EXTREMITIES: The patient does have right lower extremity to knee with nonpitting right ankle. The patient does have a right knee incision that is healing well. MUSCULOSKELETAL: Moves all extremities x4. Does have some limited range of motion in bilateral upper extremities in shoulder area. SKIN: Skin is warm and dry with normal color and turgor. NEURO/PSYCH: The patient is ill-appearing elderly female with anxiety. DISCHARGE MEDICATIONS: Atorvastatin 40 mg daily, Synthroid 100 mcg daily, metoprolol 25 mg twice daily, Myrbetriq 50 mg daily, Protonix 40 mg twice daily, Mirapex 0.5 mg daily, Jantoven 2 mg daily, Glucophage 500 mg twice daily, Demadex 20 mg daily, Zofran 8 mg every eight hours p.r.n. nausea, Osphena 60 mg daily, Percocet 10/325 one tablet q.6 hours p.r.n. pain, Aldactone 100 mg twice daily, Levsin 0.125 mg twice daily p.r.n. esophageal spasms, artificial tears twice daily p.r.n. dryness in both eyes, amiodarone 200 mg twice daily. ALLERGIES: The patient is allergic to Dilantin, she gets hives. Reglan, the patient is unable to recall. Has adverse reactions to NSAIDs, for which she gets ulcers. Morphine, she gets itching. Carbamazepine, has a serum allergy. Clonazepam, amnesia. Promethazine, feels spaced out. DISCHARGE INSTRUCTIONS: The patient is to follow up with her orthopedic physician in one week. The patient is to follow up with Coumadin clinic on 02/20/2017 and Cardiology as previously scheduled. If the patient is to have any unusual chest pain or shortness of breath, she is to notify Cardiology or present to the ER. The patient should follow up with her PCP, Dr. Nicholson in 7 to 10 days. Approximately, 40 minutes has been spent summarizing discharge of this patient, including [id number] encounter. DICTATED BY: Jennifer Rodriguez NP Discharge Summary [address] [address] NAME: KACI SERRANO : 47 STATUS : DIS Iggy PAT#: [id number] AGE: 71 ADM/REG DATE : 02/17/17 MR#: [id number] REPORT SERV DATE: 02/19/17 DICTATED BY: DATE: REPORT STATUS : Draft TRANSCRIBED BY: WHITNEY DATE: 02/18/17 RICHI/WHITNEY Jennifer Rodriguez NP / [id number] / [id number] CC: Gunnar Johnson M.D.
--- NOTE | ~2017-02-17 | CN ---
Consultation Report [facility] [address]. [address] NAME: KACI BONDS : 49 STATUS : ADM Iggy PAT#: [id number] AGE: 71 ADM/REG DATE : 02/17/17 MR#: [id number] REPORT SERV DATE: 02/17/17 DICTATED BY: JARETH GHOTRA DATE: 02/17/17 REPORT STATUS : Draft TRANSCRIBED BY: MODL DATE: 02/17/17 CARDIOLOGY CONSULT DATE OF CONSULTATION: 02/17/2017 MANAGER ENDOSCOPY: Dr. Ashley Rivas. CONSULTATION REASON: Hypoxia. HISTORY OF PRESENT ILLNESS: Ms. Bonds is a 71-year-old female status post 02/04/2017 median sternotomy for ascending aorta exploration due to an abnormal CTA chest (normal exam and aorta with no aneurysm or dissection), who returns to the ER today with rapidly declining functional capacity and shortness of breath over the past 48 hours. She is also having some left shoulder pain. She is having some discomfort related to her median sternotomy. On arrival to the ER, she was found to have hypoxia with an oxygen saturation on room air of 90%. An ABG was performed with a pH of 7.45, O2 of 69, and CO2 of 42 with a hemoglobin of 9. With oxygen supplementation, she felt better and a chest x-ray revealed only small bilateral pleural effusions with no significant pulmonary edema. Her previous care during her last hospitalization prior to discharge on 02/10/2017 was complicated by paroxysmal atrial fibrillation with spontaneous conversion to sinus rhythm. She also had some acute left upper extremity discomfort with documented left internal jugular and left subclavian vein DVTs. She was discharged on metoprolol, amiodarone, and Coumadin. On arrival, her INR was 3.8. She also has new anemia with a hematocrit of 27%. REVIEW OF SYSTEMS: She denies palpitations or syncope. She has had no orthopnea/PND. She does have some chronic bilateral edema that is slightly worse than baseline. She has had some decreased appetite and nausea. She describes GERD, upper epigastric discomfort that is improved with water. She has had no fevers or chills. She denies cough or sputum production. PAST MEDICAL HISTORY: 1. Abnormal CTA chest suspicious for type B dissection with subsequent negative surgical aorta exploration, 02/04/2017. 2. Atrial fibrillation, paroxysmal. 3. Acute left IJ and left subclavian vein DVT. 4. Chronic Coumadin. 5. Hypertension. 6. Diabetes mellitus type 2. 7. Chronic pain with spinal cord stimulator in situ. CURRENT MEDICATIONS: 1. Metoprolol 25 mg twice daily. 2. Amiodarone 200 mg twice daily. Consultation Report [id number] [place]. [address] NAME: KACI BONDS : 49 STATUS : ADM Iggy PAT#: [id number] AGE: 71 ADM/REG DATE : 02/17/17 MR#: [id number] REPORT SERV DATE: 02/17/17 DICTATED BY: JARETH GHOTRA DATE: 02/17/17 REPORT STATUS : Draft TRANSCRIBED BY: WHITNEY DATE: 02/17/17 3. Coumadin as directed. 4. Spironolactone 100 mg twice daily. 5. Torsemide 20 mg daily. 6. Metformin 500 mg twice daily. 7. Synthroid 100 mcg daily. 8. Lipitor 40 mg daily. 9. Myrbetriq 50 mg daily. 10.Zofran 8 mg p.r.n. 11.Osphena 60 mg as directed. 12.Percocet p.r.n. 13.Protonix 40 mg twice daily. 14.Mirapex 0.5 mg at bedtime. ALLERGIES: INCLUDE DILANTIN, WHICH CAUSES HIVES; REGLAN WITH AN UNKNOWN REACTION; NSAIDS CAUSE GI UPSET AND ULCERS; TEGRETOL CAUSES ABNORMAL CBC AND ANEMIA; AND PHENERGAN CAUSES ALTERED MENTAL STATUS. SOCIAL HISTORY: She does not consume alcohol or use illegal drugs. FAMILY HISTORY: There is no significant premature CAD, cardiomyopathy, or sudden . PHYSICAL EXAMINATION: VITALS: Temp is afebrile, Pulse is 75, Respirations 18, BP 111/60. GENERAL: Well appearing and somewhat uncomfortable appearing female with some mild dyspnea at rest. HEENT: Sclerae anicteric, mucous membranes moist and without lesions. NECK: No jugular venous distention. No hepatojugular reflux, carotid upstrokes 2+ and symmetric, there are no carotid or subclavian bruit. LUNGS: Faintly decreased breath sounds, bilateral bases with no wheezes or crackles. CARDIOVASCULAR: Regular with distant S1 and S2. No audible S3. No audible murmurs. No parasternal lift, PMI is not palpable. ABDOMEN: Soft and nontender. Bowel sounds positive and normoactive. No hepatomegaly, no masses, no abdominal bruit. PULSES: Radial and dorsalis pedis pulses are all 2+ and symmetric. EXTREMITIES: Warm with 1+ bilateral lower extremity edema. SKIN: No clubbing or cyanosis, no rashes or lesions. ACCESSORY DATA: ECG today demonstrates sinus rhythm at 75 beats per minute with nondiagnostic ST-T abnormalities postoperatively. Initial troponin was negative. Initial INR 3.8 with a hemoglobin of 8, hematocrit 27, platelet count of 412. Initial creatinine 1.2 with BUN of 12, otherwise normal electrolytes. IMPRESSION: 1. Hypoxia. 2. Shortness of breath. Consultation Report [address] [address] NAME: KACI BONDS : 49 STATUS : ADM Iggy PAT#: [id number] AGE: 71 ADM/REG DATE : 02/17/17 MR#: [id number] REPORT SERV DATE: 02/17/17 DICTATED BY: JARETH GHOTRA. DATE: 02/17/17 REPORT STATUS : Draft TRANSCRIBED BY: WHITNEY DATE: 02/17/17 3. Chest pain/shoulder pain. 4. Small bilateral pleural effusions on chest x-ray. 5. Hypertension. 6. Diabetes mellitus type 2. 7. Chronic pain. 8. Acute blood loss anemia. PLAN: Ms. Bonds has increasing shortness of breath and documented hypoxia postop day 12 after ascending aorta exploration. Care is complicated by increased chest and left shoulder pain. Despite being on a supratherapeutic INR with Coumadin, she has a previously documented left IJ and left subclavian DVT, and recommend V/Q scan to rule out pulmonary embolism as a diagnosis for etiology of hypoxia. Recommend limited echocardiogram to assess LV and RV function, rule out pericardial effusion. Discontinue amiodarone with hypoxia recently prescribed. Question of possible component of symptomatic acute blood loss anemia. We will follow with you. KASIA/WHITNEY Jareth Ghotra M.D. / [id number] CC: Farhna Briggs MD
--- NOTE | ~2017-02-17 | HP ---
History And Physical [id number] [facility] [place]. [address] NAME: KACI BONDS : 49 STATUS : ADM Iggy PAT#: [id number] AGE: 71 ADM/REG DATE : 02/17/17 MR#: [id number] REPORT SERV DATE: 02/17/17 DICTATED BY: MARTHA GARCIA DATE: 02/17/17 REPORT STATUS : Draft TRANSCRIBED BY: MODL DATE: 02/17/17 DATE OF ADMISSION: 02/17/2017 POINT OF ENTRY: [facility] Emergency Department Primary care physician is Dr. Criss Nicholson. PRIMARY WOOD CAULKER: Dr. Ashley Rivas. CHIEF COMPLAINT: Chest pain and shortness of breath. HISTORY OF PRESENT ILLNESS: Ms Bonds is a 71-year-old female with a history of non-insulin- dependent diabetes mellitus type 2, hypothyroidism, gastroesophageal reflux disease, chronic pain as well as a recent admission to the [facility] for concerns for a type A aortic dissection, status post aortic exploration without evidence of any dissection who presents back to the emergency room today with a two-day history of chest pain shortness of breath. The patient was admitted to the [facility] Cardiac Surgical Service from 02/03/2017 through 02/10/[address] imaging concerning for a type A [place] dissection. She underwent emergent aortic exploration without evidence of dissection and no surgical intervention other than exploration was undertaken. Postoperatively, she developed some postoperative atrial fibrillation for which Cardiology was consulted and placed on amiodarone as well as Coumadin. Review of other records do reveal a left subclavian and internal jugular DVT as well during her hospital stay. She was discharged to home on the 02/10/2017 and states that for the first few days, she was feeling weak and fatigued, but had no specific complaints. Beginning about two days ago, she noted significant dyspnea on exertion as well as exertional angina and occasionally some left-sided chest pain even at rest. She does have a history of lymphedema, but does report that she feels as if her lower extremities were more swollen than her baseline or her norm. REVIEW OF SYSTEMS: She denies any associated fevers, night sweats, chills, sputum production, wheezing. Does report some nausea, but denies any vomiting. Does state that she has been having some difficulty taking in food and water secondary to her nausea. Comprehensive system otherwise negative unless listed in history present illness. Initial evaluation in the emergency department notable for EKG that was nonischemic. Troponin was negative. BNP was mildly elevated at 554, however, chest x-ray was clear without any evidence of failure or pneumonia. Her creatinine was elevated at 1.26 as well as her INR at 3.8. She was subsequently admitted the Hospitalist Service for further evaluation and management. PREVIOUS MEDICAL HISTORY: 1. Status post aortic exploration for CT imaging concerning for type A [place] dissection. History And Physical [address] [place]. [address] NAME: KACI BONDS : 49 STATUS : ADM Iggy PAT#: [id number] AGE: 71 ADM/REG DATE : 02/17/17 MR#: [id number] REPORT SERV DATE: 02/17/17 DICTATED BY: MARTHA GARCIA DATE: 02/17/17 REPORT STATUS : Draft TRANSCRIBED BY: WHITNEY DATE: 02/17/17 2. Paroxysmal atrial fibrillation, on Coumadin. 3. Rmy-[place]-wufpkdbpj diabetes mellitus type 2. 4. Hypothyroidism. 5. Osteoarthritis. 6. Gastroparesis. 7. Gastroesophageal reflux disease. 8. Hiatal hernia. 9. Chronic lymphedema. 10.Chronic lower back pain, on chronic narcotics. 11.Fibromyalgia. 12.Anxiety. 13.Left IJ and subclavian DVT, on Coumadin. SURGICAL HISTORY: 1. Cholecystectomy. 2. Abdominal hysterectomy. 3. Number back surgery. 4. Aortic exploration. ALLERGIES: 1. DILANTIN. 2. REGLAN. 3. NSAIDS. 4. MORPHINE. 5. TEGRETOL. 6. KLONOPIN. 7. PHENERGAN. HOME MEDICATIONS: 1. Amiodarone 200 mg b.i.d. 2. Artificial tears b.i.d. p.r.n. 3. Atorvastatin 40 mg q.h.s. 4. Levsin 0.125 mg b.i.d. 5. Synthroid 100 mcg daily. 6. Metformin 500 mg b.i.d. 7. Lopressor 25 mg b.i.d. 8. Myrbetriq 50 mg daily. 9. Zofran 8 mg q.8 hours p.r.n. 10.Osphena 60 mg daily, not taking currently. 11.Percocet 10/325 one tab q.6 hours p.r.n. 12.Protonix 40 mg b.i.d. 13.Mirapex 0.5 mg q.h.s. 14.Aldactone 100 mg b.i.d. 15.Demadex 20 mg daily. 16.Coumadin 2 mg daily. SOCIAL HISTORY: Denies any tobacco, alcohol, or illicits. History And Physical [address] [address] NAME: KACI BONDS : 49 STATUS : ADM Iggy PAT#: [id number] AGE: 71 ADM/REG DATE : 02/17/17 MR#: [id number] REPORT SERV DATE: 02/17/17 DICTATED BY: MARTHA GARCIA DATE: 02/17/17 REPORT STATUS : Draft TRANSCRIBED BY: WHITNEY DATE: 02/17/17 FAMILY HISTORY: Notable for diabetes, coronary disease, and stroke. LABS AND IMAGIN. White count is 7.7, hemoglobin is 8.7, hematocrit is 27.0, platelet count is 412. INR is 3.8. 2. Sodium is 138, potassium 4.8, chloride 100, carbon dioxide 31, BUN 12, creatinine 1.26, glucose is 123, calcium is 9.0, magnesium is 1.8. 3. Troponin is less than 0.02. BNP is 554. 4. ABG; pH is 7.5, pCO2 is 43, pO2 is 70, bicarb is 29, saturating 90% on room air. 5. Chest x-ray, per my review, shows midline sternotomy with some very small left greater than right bilateral pleural effusions without evidence of any consolidation, infiltrate, or volume overload. 6. EKG per my review shows normal sinus rhythm with some prolonged QT with some diffuse T- wave flattening, but no evidence of any acute ischemia or infarction. PHYSICAL EXAMINATION: VITAL SIGNS: Temperature is 98.3 degrees Fahrenheit, pulse is 78, respirations 11, saturating 93% on room air, blood pressure 111/57. GENERAL: The patient is awake, alert, in no acute distress. Resting comfortably. She is an obese, elderly female. is at bedside. HEENT: Atraumatic and normocephalic. Dry mucous membranes. Pupils equal, round, and reactive to light and accommodation. Extraocular eye movements intact. No scleral icterus. NECK: No jugular venous distention. No carotid bruits. CARDIAC: Regular rate and rhythm. No murmurs, rubs, or gallops. Normal S1 and S2. Her sternotomy site appears to be clean, dry, and intact without evidence of infection. LUNGS: Clear to auscultation bilaterally. No wheezes, rhonchi, or crackles with good air movement. ABDOMEN: Soft, nontender, nondistended with some mild tenderness to palpation over the epigastrium. No rebound, guarding, or rigidity. EXTREMITIES: Warm and perfused with no cyanosis or clubbing. Does have some chronic appearing 1+ lower extremity edema. The right lower extremity vein harvest site appears clean, dry, and intact. SKIN: Warm and dry. PSYCH: Affect is appropriate. NEURO: Alert and oriented x3. Cranial nerves II through XII are grossly intact. Speech is normal. Gait not assessed. ASSESSMENT AND PLAN: Ms. Bonds is a 71-year-old female, who is almost two weeks postop from aortic exploration for a presumed [place] type A dissection by CT imaging who presents with a two-day history of dyspnea on exertion as well as exertional angina. PROBLEM LIST: 1. Acute kidney injury and dehydration. 2. Chest pain and exertional angina. 3. Dyspnea on exertion. 4. Mild hypoxemia. History And Physical [address] [address] NAME: KACI BONDS : 49 STATUS : ADM Iggy PAT#: [id number] AGE: 71 ADM/REG DATE : 02/17/17 MR#: [id number] REPORT SERV DATE: 02/17/17 DICTATED BY: MARTHA GARCIA DATE: 02/17/17 REPORT STATUS : Draft TRANSCRIBED BY: MODAlanna DATE: 02/17/17 5. Supratherapeutic INR. 6. Elevated BNP level. 7. History of chronic pain and anxiety. 8. Weakness and debility. PLAN: 1. Acute kidney injury and dehydration. Suspect this is due to poor oral intake. Recently starting use of Demadex as well as Aldactone. We will hold both diuretics and provide some gentle IV fluid hydration. Checking urine lytes. 2. Dyspnea on exertion and exertional angina. Unclear etiology at this time as chest x- ray, EKG, and cardiac enzymes are unremarkable. BNP is mildly elevated. However, chest x-ray is clear. Lung exam is clear and she actually appears dry on exam. We will continue to trend out cardiac enzymes and we will consult Cardiology for assistance. 3. Supratherapeutic INR. Holding the patient's Coumadin tonight. Ask pharmacy to assist with dosing. 4. Mild hypoxemia. She does have some mild hypoxemia on ABG. I will provide some p.r.n. DuoNebs as well as incentive spirometry for pulmonary toilet. 5. Elevated BNP level. Unclear etiology at this time as she had an echocardiogram on 02/07/2017 that showed preserved ejection fraction and no diastolic dysfunction. The patient also has a clear chest x-ray. It appears somewhat dry on exam except for her chronic lymphedema. I will continue to monitor as well as defer to Cardiology for further evaluation. 6. Deep venous thrombosis prophylaxis. Supratherapeutic INR, on Coumadin. CODE STATUS: The patient wished to be full code. AGAB/MODL Martha Garcia MD / [id number] CC: MD Criss Reyez M.D. Lisa Gail Carkner, M.D.
--- NOTE | ~2017-02-17 | CN ---
Consultation Report [facility] [address] [place]. [address] NAME: KACI SERRANO : 49 STATUS : ADM Iggy PAT#: [id number] AGE: 71 ADM/REG DATE : 02/17/17 MR#: [id number] REPORT SERV DATE: 02/18/17 DICTATED BY: STEFANI ALEJANDRO DATE: 02/18/17 REPORT STATUS : Draft TRANSCRIBED BY: MODL DATE: 02/18/17 CONSULT REPORT DATE OF CONSULTATION: 02/18/2017 REASON FOR CONSULTATION: Evaluation of chest pain. HISTORY OF PRESENT ILLNESS: This is a pleasant 71-year-old female, known to us after she was admitted to the hospital via [facility] on 02/04/2017. She presented there with chest pain and shortness of breath. EKG and cardiac enzymes were negative at that time, but CT angiogram appeared to show a type A dissection. This CT scan was reviewed by several radiologists before the patient was transferred over here to undergo emergent sternotomy and right venous harvest in anticipation of repair of dissection after sternotomy and aortic exploration. It was found that the patient did not have any dissection. This was not apparent upon transesophageal echocardiogram at that time. The sternotomy was closed and the patient was placed in CVICU for recovery. The patient developed some paroxysmal atrial fibrillation which converted to sinus rhythm on its own. She was started on amiodarone and Coumadin by Cardiology. She did well for the first couple of days after surgery but did eventually develop some epigastric pain and nausea and vomiting. The patient said that the epigastric pain she was feeling at that time was similar to the type of pain she feels when she needs to have her esophagus dilated. She says that she has had several esophageal dilatations with one most recently done [address] Sanford. I spoke with Dr. Espino over the phone and he did not feel like any intervention needed to be done at that time. She was on high doses of narcotics at that time, so these were weaned down suspecting gastroparesis. Her nausea and vomiting eventually improved. She did have some swelling in her left upper extremity. So an ultrasound was ordered which did show a left subclavian clot and left upper extremity DVT. The patient was already on Coumadin, so she was continued on this therapy and discharged home on 02/10/2017. She says she was doing well for the first couple of days at home, able to mobilize independently, and says that she was eating well. She says that yesterday morning, she developed profound weakness and dyspnea on exertion and became very anxious and concerned that something was wrong. She presented to the emergency room for evaluation and was found to have normal EKG and cardiac enzymes but a mildly elevated troponin and abnormal ABGs suggesting hypoxia and mild metabolic alkalosis. Her BNP was mildly elevated at 554 and her INR was 3.8. I spoke with Dr. Briggs over the phone yesterday afternoon and reviewed labs and images. Her chest x-ray showed some bibasilar atelectasis and mild pleural effusions bilaterally. The patient was admitted as observation for chest pain. She says that she has continued to have some pain overnight but has not had any events on telemetry. Her cardiac enzymes remained normal. Creatinine has improved with gentle hydration. Hemoglobin is a little bit low in comparison to when she was discharged with no obvious signs of bleeding. The patient describes her chest pain as "sternal discomfort" and aching that spreads across her chest to her shoulders bilaterally. She continues to complain of dyspnea on exertion with mobilization. Consultation Report [place] [id number] [facility] [place]. 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 FAMILY HISTORY: Reviewed and noncontributory. SOCIAL HISTORY: She is . Denies any history of alcohol abuse or use of illicit drugs. PAST SURGICAL HISTORY: Prior nerve stimulator; multiple esophageal dilatations; hysterectomy; cholecystectomy; and prior back surgery. ALLERGIES: SHE REPORTS ALLERGIES TO DILANTIN; REGLAN; NSAIDS; MORPHINE; TEGRETOL; CLONAZEPAM; AND PHENERGAN. HOME MEDICATIONS: 1. Metoprolol 25 mg p.o. twice a day. 2. Amiodarone 200 mg p.o. twice a day. 3. Coumadin per sliding scale. 4. Aldactone 100 mg p.o. twice a day. 5. Torsemide 20 mg p.o. daily. 6. Metformin 500 mg p.o. twice daily. 7. Synthroid 100 mcg p.o. daily. 8. Lipitor 40 mg p.o. daily. 9. Myrbetriq 50 mg p.o. daily. 10.Zofran 8 mg as needed. 11.Osphena 60 mg as directed. 12.Percocet as needed. 13.Protonix 40 mg p.o. twice daily. 14.Mirapex 0.5 mg at bedtime. 15.BuSpar unknown dose, the patient says she takes this occasionally as needed for anxiety. REVIEW OF SYSTEMS: A 10-point review of systems was obtained and is negative other than the HPI. PHYSICAL EXAMINATION: VITAL SIGNS: From today temperature 98 degrees, heart rate 67, blood pressure 121/58, respiratory rate 18, and O2 saturation 100% on 2 liters. GENERAL: Pleasant, anxious, ill-appearing female. PSYCHIATRIC: Normal mood, a little anxious, pleasant, talkative. NEUROLOGIC: Alert and oriented x3. Pupils are equal, round, and reactive to light and accommodation. She exhibits equal strength in bilateral upper extremities and bilateral lower extremities. Consultation Report [address] [place]. [address] NAME: KACI SERRANO : 49 STATUS : ADM Iggy PAT#: [id number] AGE: 71 ADM/REG DATE : 02/17/17 MR#: [id number] REPORT SERV DATE: 02/18/17 DICTATED BY: STEFANI ALEJANDRO DATE: 02/18/17 REPORT STATUS : Draft TRANSCRIBED BY: WHITNEY DATE: 02/18/17 HEENT: Head normocephalic and atraumatic. Sclerae clear. Nose is midline with no abnormalities. Ears with no abnormalities. Fair dentition overall with several missing teeth. NECK: Supple with no thyromegaly or lymphadenopathy. Carotids on auscultation with no obvious bruits. CARDIAC: S1, S2 with no murmurs, rubs, or gallops. Regular rate and rhythm. LUNGS: Clear to auscultation bilaterally, diminished throughout. ABDOMEN: Firm, a little distended with hypoactive bowel sounds. Reports last bowel movement yesterday morning. EXTREMITIES: Trace bilateral lower extremity edema with pedal pulses present and equal bilaterally. Lower extremities are very tender to touch. LABORATORY DATA: White blood cell count 5.6, hemoglobin 8.6, hematocrit 27, and platelets 405. Sodium 136, potassium 4.5, chloride 101, bicarbonate 29, BUN 13, creatinine 1.1, and glucose 120. INR upon presentation is 3.8. BNP was 554. Chest x-ray performed on 02/17/2017, showed mild bibasilar atelectasis with stable small bilateral pleural effusions in comparison to prior chest x-rays. ASSESSMENT AND PLAN: This is a 71-year-old female who has been readmitted to the hospital after she was discharged on 02/10/2017. She presented yesterday with chest pain and acute dyspnea on exertion. In the emergency room, her EKG and cardiac enzymes were negative but ABGs suggested hypoxia and mild metabolic alkalosis. The patient says that she has been eating well with no nausea and vomiting. INR is supratherapeutic on Coumadin. Chest x-ray is clear other than some mild bibasilar atelectasis and small pleural effusions. Based upon her description of the chest pain, I suspect the majority of her pain at this time is related to the sternotomy and this can be anticipated during this phase of recovery. Other than recent sternotomy, I have no clear understanding of her chest pain. I agree with the V/Q scan and echocardiogram to evaluate for pulmonary embolism and evaluation of heart function. Her incisions to her sternum and right lower extremity appear to be healing well. Her labs are improving and her vital signs are stable. Hemoglobin is a little bit low since she was discharged a week ago but appears to be stable. We appreciate the consultation. I reassured the patient that we will do our best to look into her symptoms but she does not have any surgical needs at this time and unfortunately, I have very little to add at this time. We will continue to follow with you. TYRONE/WHITNEY Stefani Alejandro NP / [id number] CC: Sveta Bourne M.D. Consultation Report [place] [address] [id number] NAME: KACI SERRANO : 49 STATUS : ADM Iggy PAT#: [id number] AGE: 71 ADM/REG DATE : 02/17/17 MR#: [id number] REPORT SERV DATE: 02/18/17 DICTATED BY: STEFANI ALEJANDRO DATE: 02/18/17 REPORT STATUS : Draft TRANSCRIBED BY: WHITNEY DATE: 02/18/17 Criss Nicholson M.D.
[~2017-02-17 12:41] MED LIST changes: +CORDARONE PO; +JANTOVEN2 MG PO; +LIPITOR40 PO
[2017-02-17 13:26] LABS: BASOPHILS 0.3 %; BASOPHILS ABSOLUTE 0.02 10/3/uL (0.0-0.16); EOSINOPHILS 1.6 %; EOSINOPHILS ABSOLUTE 0.12 10/3/uL (0.0-0.53); HEMOGLOBIN 8.7 g/dL (12.0-16.0); IMMATURE GRANULOCYTES 0.1 %; IMMATURE GRANULOCYTES ABSOLUTE 0.01 10/3/uL (0.0-0.11); LYMPHOCYTES 15.1 %; LYMPHOCYTES ABSOLUTE 1.17 10/3/uL (0.67-4.30); MANUAL DIFF NO %; MEAN CORPUS HGB CONC 32.2 g/dL (32.0-36.0); MEAN CORPUSCULAR HEMOGLOB 30.3 pg (26.0-34.0); MEAN CORPUSCULAR VOLUME 94.1 fL (80-100); MONOCYTES 7.1 %; MONOCYTES ABSOLUTE 0.55 10/3/uL (0.21-1.20); NEUTROPHILS 75.8 %; NEUTROPHILS ABSOLUTE 5.87 10/3/uL (2.02-8.40); PLATELET COUNT 412 10/3/uL (150-400); RBC DISTRIBUTION WIDTH 13.3 % (12.0-16.0); RED CELL COUNT 2.87 10/6/uL (4.0-5.6); WHITE BLOOD CELLS 7.7 10/3/uL (4.5-10.5)
[2017-02-17 13:33] LABS: INTERNATIONAL NORMAL RATI 3.8 UNITS (-); PARTIAL THROMBO TIME 57.7 SEC (22.5-37.2)
[2017-02-17 13:35] LABS: PROTIME (NOT ORD) 37.3 SEC (12.0-14.5)
[2017-02-17 13:43] LABS: BUN (BLOOD UREA NITROGEN) 12 MG/DL (6-23); CHEST PAIN PROFILE TAT 0 Hrs 21 Mins; CHLORIDE, SERUM 100 MMOL/L (96-112); CO2 (CARBON DIOXIDE) 31 MMOL/L (24-34); CREATININE 1.26 MG/DL (0.55-1.02); GFR AFRICAN AMERICAN 50 ML/MIN (>=60); GFR NON AFRICAN AMERICAN 43 ML/MIN (>=60); GLUCOSE, SERUM 123 MG/DL (60-99); POTASSIUM, SERUM 4.8 MMOL/L (3.5-5.3); SODIUM, SERUM 138 MMOL/L (135-148); TROPONIN I <0.02 NG/ML (<0.05)
[2017-02-17 14:20] LABS: BE (BASE EXCESS) 4.1 MEQ/L (0 +/- 2.5); INSTRUMENT SERIAL # 8087; PCO2 (CO2 TENSION) 43 MMHG (35-45); PO2 (O2 TENSION) 70 MMHG (79-93); pH 7.45 (7.37-7.43)
[2017-02-17 14:21] LABS: ALLENS TEST Pos; CARBOXYHEMOGLOBIN 1.1 % (0-3); HCO3 (ACTUAL BICARBONATE) 28.6 MEQ/L (23-27); HEMOBLOGIN CONTENT 9.8 G/DL (12-16); METHEMOGLOBIN 0.2 % (0-3); O2 CONTENT 12.3 VOL% (18-24); OPERATOR ID 32214; SAMPLE Arterial
[2017-02-17 20:01] LABS: CPK 44 U/L (0-200); TROPONIN I <0.02 NG/ML (<0.05)
[2017-02-17 20:03] LABS: CK-MB 0.7 NG/ML
[2017-02-18 03:44] LABS: CPK 37 U/L (0-200); TROPONIN I <0.02 NG/ML (<0.05)
[2017-02-18 03:49] LABS: CK-MB 0.7 NG/ML
[2017-02-18 05:27] LABS: BASOPHILS 0.4 %; BASOPHILS ABSOLUTE 0.02 10/3/uL (0.0-0.16); EOSINOPHILS 2.8 %; EOSINOPHILS ABSOLUTE 0.16 10/3/uL (0.0-0.53); HEMOGLOBIN 8.6 g/dL (12.0-16.0); IMMATURE GRANULOCYTES 0.2 %; IMMATURE GRANULOCYTES ABSOLUTE 0.01 10/3/uL (0.0-0.11); LYMPHOCYTES 25.1 %; LYMPHOCYTES ABSOLUTE 1.41 10/3/uL (0.67-4.30); MEAN CORPUS HGB CONC 31.9 g/dL (32.0-36.0); MEAN CORPUSCULAR VOLUME 94.1 fL (80-100); MEAN PLATELET VOLUME 9.1 fL (9.2-13.0); MONOCYTES 7.8 %; MONOCYTES ABSOLUTE 0.44 10/3/uL (0.21-1.20); NEUTROPHILS 63.7 %; NEUTROPHILS ABSOLUTE 3.58 10/3/uL (2.02-8.40); PLATELET COUNT 405 10/3/uL (150-400); RBC DISTRIBUTION WIDTH 13.5 % (12.0-16.0); RED CELL COUNT 2.87 10/6/uL (4.0-5.6); WHITE BLOOD CELLS 5.6 10/3/uL (4.5-10.5)
[2017-02-18 05:28] LABS: MANUAL DIFF NO %
[2017-02-18 05:31] LABS: INTERNATIONAL NORMAL RATI 2.8 UNITS (-)
[2017-02-18 05:37] LABS: BUN (BLOOD UREA NITROGEN) 13 MG/DL (6-23); CALCIUM, SERUM 8.4 MG/DL (8.5-10.4); CHLORIDE, SERUM 101 MMOL/L (96-112); CO2 (CARBON DIOXIDE) 29 MMOL/L (24-34); GFR AFRICAN AMERICAN 59 ML/MIN (>=60); GFR NON AFRICAN AMERICAN 51 ML/MIN (>=60); GLUCOSE, SERUM 120 MG/DL (60-99); PHOSPHORUS, SERUM 4.1 MG/DL (2.5-4.5); POTASSIUM, SERUM 4.5 MMOL/L (3.5-5.3); SODIUM, SERUM 136 MMOL/L (135-148)
[2017-03-26] MEDS ORDERED: ENDOCET1 TA3 PO ×2 (23:51→23:56)
[2017-03-26] MEDS ORDERED: COUMADIN3 MG PO (23:51)
[2017-03-26] MEDS ORDERED: DEMA20 PO ×2 (23:52→23:57)
[2017-03-26] MEDS ORDERED: GLUCPH PO (23:52)
[2017-03-26] MEDS ORDERED: CORDARONE PO (23:53)
[2017-03-26] MEDS ORDERED: LIPITOR40 PO (23:54)
[2017-03-26] MEDS ORDERED: REFRESH OPH (23:54)
[2017-03-26] MEDS ORDERED: SYN1 PO (23:54)
[2017-03-26] MEDS ORDERED: LOP25 PO (23:54)
[2017-03-26] MEDS ORDERED: ZOFRAN8 PO (23:55)
[2017-03-26] MEDS ORDERED: MYRBETRIQ50 MG PO (23:55)
[2017-03-26] MEDS ORDERED: PROTONIX PO (23:56)
[2017-03-26] MEDS ORDERED: MIRAPEX5 PO (23:56)
[2017-03-26] MEDS ORDERED: SPIR100 PO (23:57)
[2017-03-26] MEDS ORDERED: PSEUDOEPHEDR60 MG PO (23:58)
[2017-03-26] MEDS ORDERED: NEO-OINT15 TOP (23:59)
== END 2017-02-18 18:36 | disposition home or self-care (01) ==
LOC: ER 12:41 → CDU1 16:38 → CDU2 17:30
PROVIDERS: Emergency Medicine; Internal Medicine
DX: I20.8 Other forms of angina pectoris (principal); R09.02 Hypoxemia; E11.9 Type 2 diabetes mellitus without complications; E86.0 Dehydration; E03.9 Hypothyroidism, unspecified; K21.9 Gastro-esophageal reflux disease without esophagitis; I48.0 Paroxysmal atrial fibrillation; M19.90 Unspecified osteoarthritis, unspecified site; F41.9 Anxiety disorder, unspecified; D62 Acute posthemorrhagic anemia; J90 Pleural effusion, not elsewhere classified; Z90.49 Acquired absence of other specified parts of digestive tract; Z90.710 Acquired absence of both cervix and uterus; Z98.890 Other specified postprocedural states; Z88.5 Allergy status to narcotic agent; Z88.6 Allergy status to analgesic agent; Z79.01 Long term (current) use of anticoagulants; Z88.8 Allergy status to other drugs, medicaments and biological substances; Z79.899 Other long term (current) drug therapy; Z86.718 Personal history of other venous thrombosis and embolism
CPT/HCPCS: 71010; 78582; 80048; 80069; 82550; 82553; 82805; 82962; 83735; 83880; 84484; 85025; 85610; 85730; 93005; 96374; 96375; 97161-GP; 99285; A9270-GY; A9540; A9567; C8924; G0378; J1170; J2405; Q9957

== ENCOUNTER 2017-02-26 15:52 | Emergency (ER) | payer OTHER ==
[2017-02-26 16:04] LABS: BASOPHILS 0.6 %; BASOPHILS ABSOLUTE 0.04 10/3/uL (0.0-0.16); EOSINOPHILS 3.9 %; EOSINOPHILS ABSOLUTE 0.26 10/3/uL (0.0-0.53); ER CBC TAT 0 Hrs 05 Mins; HEMOGLOBIN 9.8 g/dL (12.0-16.0); IMMATURE GRANULOCYTES 0.2 %; IMMATURE GRANULOCYTES ABSOLUTE 0.01 10/3/uL (0.0-0.11); LYMPHOCYTES 28.8 %; MEAN CORPUS HGB CONC 31.7 g/dL (32.0-36.0); MEAN CORPUSCULAR HEMOGLOB 29.3 pg (26.0-34.0); MEAN CORPUSCULAR VOLUME 92.5 fL (80-100); MEAN PLATELET VOLUME 8.5 fL (9.2-13.0); MONOCYTES 9.4 %; MONOCYTES ABSOLUTE 0.62 10/3/uL (0.21-1.20); NEUTROPHILS 57.1 %; NEUTROPHILS ABSOLUTE 3.76 10/3/uL (2.02-8.40); PLATELET COUNT 359 10/3/uL (150-400); RBC DISTRIBUTION WIDTH 13.7 % (12.0-16.0); RED CELL COUNT 3.34 10/6/uL (4.0-5.6); WHITE BLOOD CELLS 6.6 10/3/uL (4.5-10.5)
[2017-02-26 16:08] LABS: HEMATOCRIT 30.9 % (36.0-48.0); MANUAL DIFF NO %
[2017-02-26 16:14] LABS: INTERNATIONAL NORMAL RATI 1.3 UNITS (-); PARTIAL THROMBO TIME 30.4 SEC (22.5-37.2)
[2017-02-26 16:16] LABS: PROTIME (NOT ORD) 16.5 SEC (12.0-14.5)
[2017-02-26 16:22] LABS: BUN (BLOOD UREA NITROGEN) 16 MG/DL (6-23); CALCIUM, SERUM 9.2 MG/DL (8.5-10.4); CHLORIDE, SERUM 103 MMOL/L (96-112); CO2 (CARBON DIOXIDE) 29 MMOL/L (24-34); CREATININE 1.22 MG/DL (0.55-1.02); GFR AFRICAN AMERICAN 52 ML/MIN (>=60); GFR NON AFRICAN AMERICAN 45 ML/MIN (>=60); GLUCOSE, SERUM 117 MG/DL (60-99); POTASSIUM, SERUM 4.6 MMOL/L (3.5-5.3); SGOT(AST) 10 U/L (5-40); SGPT(ALT) 18 U/L (5-65); SODIUM, SERUM 139 MMOL/L (135-148); TOTAL BILIRUBIN 0.3 MG/DL (0-1.2); TOTAL PROTEIN 7.3 G/DL (6.0-8.5); TROPONIN I <0.02 NG/ML (<0.05)
[2017-02-26 16:23] LABS: ALBUMIN 3.7 G/DL (3.5-5.0); ALKALINE PHOSPHATASE 88 U/L (45-117); GLOBULIN 3.6 G/DL (2.5-4.1)
[2017-03-26] MEDS ORDERED: COUMADIN3 MG PO (23:51)
[2017-03-26] MEDS ORDERED: ENDOCET1 TA3 PO ×2 (23:51→23:56)
[2017-03-26] MEDS ORDERED: GLUCPH PO (23:52)
[2017-03-26] MEDS ORDERED: DEMA20 PO ×2 (23:52→23:57)
[2017-03-26] MEDS ORDERED: CORDARONE PO (23:53)
[2017-03-26] MEDS ORDERED: REFRESH OPH (23:54)
[2017-03-26] MEDS ORDERED: LOP25 PO (23:54)
[2017-03-26] MEDS ORDERED: SYN1 PO (23:54)
[2017-03-26] MEDS ORDERED: LIPITOR40 PO (23:54)
[2017-03-26] MEDS ORDERED: MYRBETRIQ50 MG PO (23:55)
[2017-03-26] MEDS ORDERED: ZOFRAN8 PO (23:55)
[2017-03-26] MEDS ORDERED: PROTONIX PO (23:56)
[2017-03-26] MEDS ORDERED: MIRAPEX5 PO (23:56)
[2017-03-26] MEDS ORDERED: SPIR100 PO (23:57)
[2017-03-26] MEDS ORDERED: PSEUDOEPHEDR60 MG PO (23:58)
[2017-03-26] MEDS ORDERED: NEO-OINT15 TOP (23:59)
== END 2017-02-26 16:41 | disposition home or self-care (01) ==
LOC: ER 15:52
PROVIDERS: Emergency Medicine
DX: R53.83 Other fatigue (principal); R07.9 Chest pain, unspecified; R06.02 Shortness of breath; I10 Essential (primary) hypertension; E11.9 Type 2 diabetes mellitus without complications; D64.9 Anemia, unspecified; Z86.718 Personal history of other venous thrombosis and embolism; Z88.5 Allergy status to narcotic agent; Z88.8 Allergy status to other drugs, medicaments and biological substances; Z95.1 Presence of aortocoronary bypass graft; Z79.84 Long term (current) use of oral hypoglycemic drugs; Z79.01 Long term (current) use of anticoagulants; Z79.899 Other long term (current) drug therapy
CPT/HCPCS: 71010; 80053; 83880; 84484; 85025; 85610; 85730; 93005; 99285